=== PATIENT | female | born 1990 | race Hispanic/Latino ===

== ENCOUNTER 2019-07-03 15:28 | Outpatient (CLI) | payer MEDICAID ==
[2019-07-03 15:44] VITALS: BP 96/54
--- NOTE | 2019-07-03 17:26 | Ultrasound Report ---
Limited OB Ultrasound HISTORY: Potential rupture of membranes. TECHNIQUE: Grayscale and color Doppler imaging performed. COMPARISON: None FINDINGS: Transabdominal imaging was performed. There is a single intrauterine gestation which is cep halic in presentation. RUTH is 9. Heart rate is 145 bpm. IMPRESSION: Single viable intrauterine gestation with limited findings as above. Signer Name: Arian Godoy MD Signed: 07/03/2019 5:22 PM Workstation Name: [id number]
== END 2019-07-03 18:40 | disposition home or self-care (01) ==
LOC: TRG 15:28
PROVIDERS: ATTEND Obstetrics & Gynecology
DX: O47.1 False labor at or after 37 completed weeks of gestation (principal); Z3A.37 37 weeks gestation of pregnancy
CPT/HCPCS: 76815

== ENCOUNTER 2019-07-04 15:34 | Outpatient (CLI) | payer MEDICAID ==
--- NOTE | 2019-07-04 16:50 | Event Note ---
Date: 07/04/19 IUP#37 weeks, G4PL3 c/o ROM today the same as yesterday when her RUTH was found to be 9 by US. Today SSE revealed negative pool and nitrazine, cervix: /. Cat 1 FHT's, no UC noted, will allow patient to walk and recheck cervix.
== END 2019-07-04 19:01 | disposition home or self-care (01) ==
LOC: TRG 15:34
PROVIDERS: ATTEND Obstetrics & Gynecology
DX: O47.1 False labor at or after 37 completed weeks of gestation (principal); Z3A.37 37 weeks gestation of pregnancy
CPT/HCPCS: 59025; Q0177

== ENCOUNTER 2019-07-06 14:24 | Inpatient (IN) | payer MEDICAID ==
[2019-07-06] MEDS ORDERED: MINERAL OIL 30 ML ORAL LIQD PO PRN (17:10)
[2019-07-06] MEDS ORDERED: ONDANSETRON 4 MG/2 ML INJ IV PRN (17:10)
[2019-07-06] MEDS ORDERED: fentaNYL 100 MCG/2 ML INJ IV PRN (17:10)
[2019-07-06] MEDS ORDERED: ePHEDrine SULFATE 50 MG/1 ML INJ IV PRN ×2 (17:10→21:12)
[2019-07-06] MEDS ORDERED: TERBUTALINE 1 MG/1 ML INJ SUB-Q PRN (17:10)
[2019-07-06] MEDS ORDERED: LIDOCAINE (2%) 20 MG/1 ML VIAL 20 ML MDV INFILTRATI ONE (17:10)
--- NOTE | 2019-07-06 17:17 | History and Physical Report ---
History of Present Illness Date of examination: 07/06/19 Chief complaint: Labor @ 38+0 weeks History of present illness: EDC Calculations LMP: 07/20/2019 Past History : 4 Term Births: 1 Premature Births: 2 Living Children: 3 Para: 2 Mult. Births: 1 Prev : 0 Prev. attempt? none Aborta: 1 Elect. Ab: 0 Spont. Ab: 1 Ectopics: 0 # 1 Delivery date: 2004 Weeks Gestation: 11 Comments: exp mgmt. 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 lives with FOC and daughter. other children live with pts mother [facility] denies alcohol, drugs, tobacco Infection History Hx of STD: none HIV Risk Eval: low risk Hepatitis B Risk Eval: low risk Personal hx. of genital herpes: no Partner hx. of genital herpes: no Rash, Viral, or Febrile illness since last LMP? no Varicella/Chicken Pox Status: Immunized TB Risk: no Genetic History Congenital Heart Defect: Mom: no Dad: no Dhruv Disease: Mom: no Dad: no Thalassemia Mom: no Dad: no Neural Tube Defect Mom: no Dad: no Down's Syndrome Mom: no Dad: no Phil-Sachs Mom: no Dad: no Sickle Cell Disease/Trait Mom: no Dad: no Hemophilia Mom: no Dad: no Muscular Dystrophy Mom: no Dad: no Cystic Fibrosis Mom: no Dad: no [place] Chorea Mom: no Dad: no Mental Retardation Mom: no Dad: no Fragile X Mom: no Dad: no Other Genetic/Chromosomal Disorder Mom: no Dad: no Child w/other defect Mom: no Dad: no Enviromental Exposures Enviromental Exposures Reviewed Xray Exposure: no Medication, drug, or alcohol use since LMP: no Chemical/Other Exposure: no Exposure to Cat Liter: no Hx of Parvovirus (Fifth Disease): no Occupational Exposure to Children: none Current Allergies (reviewed today): No known allergies Past History Past Medical History: other (see HPI) Past Surgical History: other (see HPI) 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: other (see HPI) Family/Genetic History: other (see HPI) - Obstetrical History Expected Date of Delivery: 07/20/19 Actual Gestation: 38 Week(s) 0 Day(s) : 4 Para: 2 Hx # Term Pregnancies: 1 Number of Pregnancies: 2 Spontaneous Abortions: 1 Induced : 0 Number of Living Children: 3 Medications and Allergies Allergies Allergy/AdvReac Type Severity Reaction Status Date / Time No Known Allergies Allergy Unverified 07/03/19 15:30 Home Medications Medication Instructions Recorded Confirmed Last Taken Type Pnv Plus Multivit Tab 1 tab PO DAILY 07/03/19 07/03/19 07/03/19 History 0900 Active Meds: Active Medications Ephedrine Sulfate (Ephedrine Sulfate) 10 mg IV Q2M PRN PRN Reason: Hypotension Fentanyl (Sublimaze) 100 mcg IV Q2H PRN PRN Reason: Labor Pain Oxytocin/Sodium Chloride (Pitocin/Ns 20 Unit/1000ml Drip) 20 units in 1,000 mls @ 125 mls/hr IV DIRECT KRISTEN Oxytocin/Sodium Chloride (Pitocin/Ns 30 Unit/500ml) 30 units in 500 mls @ 4 mls/hr IV TITR KRISTEN; Protocol Lactated Ringer's (Lactated Ringers) 1,000 mls @ 125 mls/hr IV DIRECT KRISTEN Lidocaine (Xylocaine 2%) 20 ml INFILTRATI ONCE ONE Stop: 07/06/19 17:11 Mineral Oil (Mineral Oil) 30 ml PO QHS PRN PRN Reason: Constipation Ondansetron HCl (Zofran) 4 mg IV Q8H PRN PRN Reason: Nausea And Vomiting Terbutaline Sulfate (Brethine) 0.25 mg SUB-Q ONCE PRN PRN Reason: Hyperstimulation/Hypertonicity Review of Systems All systems: negative - Vital Signs Vital signs: Vital Signs Pulse BP 78 102/54 07/06/19 14:48 07/06/19 14:48 Temp Pulse Resp BP Pulse Ox 98.1 F 80 13 102/54 99 07/06/19 15:03 07/06/19 15:49 07/06/19 15:03 07/06/19 15:03 07/06/19 15:49 - Physical Exam Breasts: Positive: normal Cardiovascular: Regular rate Lungs: Positive: Clear to auscultation, Normal air movement Abdomen: Positive: normal appearance, soft Genitourinary (Female): Positive: normal external genitalia, normal perenium Vulva: both: normal Vagina: Positive: normal moisture (clear fluid noted during exam, uncertian if BOW is present) Uterus: Positive: normal size, normal contour Anus/Rectum: Positive: normal perianal skin Extremities: Positive: normal Deep Tendon Reflex Grade: Normal +2 - Obstetrical FHR: category 1 Cervical Dilatation: 3.5 (vertex) Cervical Effacement Percentage: 80 station: -1 Uterine Contraction Frequency (min): 2-5 Uterine Contraction Duration: 60 Uterine Contraction Pattern: Regular Uterine Tone Measurement Phase: Contraction Uterine Contraction Intensity: Moderate Results All other labs normal. Assessment and Plan 29 y/o @ 38w0d presented to triage with painful ctx and leaking fluids x 2 days. Small amount of clear fluid noted after exam, uncertain if BOW was present. cervical change noted since arrival to triage. admission orders in EMR. - Patient Problems (1) Active labor at term Current Visit: Yes Status: Acute Plan to address problem: Admission to L&D, anticipate Pitocin augmentation as needed. (2) 38 weeks gestation of Current Visit: Yes Status: Acute
[2019-07-06] MEDS ORDERED: OXYTOCIN 20 UNIT/1000ML DRIP 20 UNITS/1,000 ML BAG IV SCH (18:00)
[2019-07-06] MEDS ORDERED: OXYTOCIN DRIP 30 UNITS/500 ML BAG IV SCH (18:00)
[2019-07-06 18:06] LABS: Hematocrit 29.4 % (30.3-42.9); Hemoglobin 9.7 gm/dl (10.1-14.3); Mean Corpuscular HGB Conc 33 % (30-34); Mean Corpuscular Volume 90 fl (79-97); Platelet Count 179 K/mm3 (140-440); Red Blood Count 3.29 M/mm3 (3.65-5.03); Red Cell Distribution Width 14.9 % (13.2-15.2)
[2019-07-06] MEDS: LACTATED RINGERS 1,000 ML IV SCH ×3 (19:00→21:30)
[2019-07-06] MEDS ORDERED: SODIUM CHLORIDE P/F VIAL 10 ML 10 ML ONE (20:57)
[2019-07-06] MEDS ORDERED: DEXMEDETOMIDINE 200 MCG/2 ML VIAL IV ONE (20:57)
[2019-07-06] MEDS ORDERED: NALOXONE 2 MG/2 ML INJ IV PRN (21:12)
--- NOTE | 2019-07-06 21:14 | Anesthesia Consultation ---
Anesthesia Consult and Med Hx Date of service: 07/06/19 - Airway Anesthetic Teeth Evaluation: Caps ROM Head & Neck: Adequate Mental/Hyoid Distance: Adequate Mallampati Class: Class II Intubation Access Assessment: Probably Good - Pulmonary Exam CTA: Yes - Cardiac Exam Cardiac Exam: RRR - Pre-Operative Health Status ASA Pre-Surgery Classification: ASA3 Proposed Anesthetic Plan: Epidural - Pulmonary Hx Asthma: Yes COPD: No Hx Pneumonia: No - Cardiovascular System Hx Hypertension: No (hypotension typical sbp 90's) - Central Nervous System Hx Seizures: No Hx Psychiatric Problems: No - Endocrine Hx Renal Disease: No Hx End Stage Renal Disease: No Hx Hypothyroidism: No Hx Hyperthyroidism: No - Hematic Hx Anemia: Yes Hx Sickle Cell Disease: No - Other Systems Hx Alcohol Use: No
[2019-07-06] MEDS ORDERED: fentaNYL-BUPIV 2 MCG/ML-0.125% 200 MCG/100 ML BAG EPIDURAL SCH (22:00)
--- NOTE | 2019-07-06 22:16 | Progress Note ---
Assessment and Plan patient comfortable with epidural. SVE now /1, fluid is clear. IUPC placed without difficulty. RN to titrate pitocin as needed for adequate labor. pelvis feels adequate for size of baby. anticipate . - Patient Problems (1) Active labor at term Current Visit: Yes Status: Acute (2) 38 weeks gestation of Current Visit: Yes Status: Acute Subjective - Subjective Date of service: 07/06/19 Principal diagnosis: IUP @ 38+0, laboring Interval history: EDC Calculations LMP: 07/20/2019 Past History : 4 Term Births: 1 Premature Births: 2 Living Children: 3 Para: 2 Mult. Births: 1 Prev : 0 Prev. attempt? none Aborta: 1 Elect. Ab: 0 Spont. Ab: 1 Ectopics: 0 # 1 Delivery date: 2003 Weeks Gestation: 11 Comments: exp mgmt. 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 lives with FOC and daughter. other children live with pts mother [facility]- [facility] denies alcohol, drugs, tobacco Infection History Hx of STD: none HIV Risk Eval: low risk Hepatitis B Risk Eval: low risk Personal hx. of genital herpes: no Partner hx. of genital herpes: no Rash, Viral, or Febrile illness since last LMP? no Varicella/Chicken Pox Status: Immunized TB Risk: no Genetic History Congenital Heart Defect: Mom: no Dad: no Dhruv Disease: Mom: no Dad: no Thalassemia Mom: no Dad: no Neural Tube Defect Mom: no Dad: no Down's Syndrome Mom: no Dad: no Phil-Sachs Mom: no Dad: no Sickle Cell Disease/Trait Mom: no Dad: no Hemophilia Mom: no Dad: no Muscular Dystrophy Mom: no Dad: no Cystic Fibrosis Mom: no Dad: no [place] Chorea Mom: no Dad: no Mental Retardation Mom: no Dad: no Fragile X Mom: no Dad: no Other Genetic/Chromosomal Disorder Mom: no Dad: no Child w/other defect Mom: no Dad: no Enviromental Exposures Enviromental Exposures Reviewed Xray Exposure: no Medication, drug, or alcohol use since LMP: no Chemical/Other Exposure: no Exposure to Cat Liter: no Hx of Parvovirus (Fifth Disease): no Occupational Exposure to Children: none Current Allergies (reviewed today): No known allergies Patient reports: no new complaints (comfortable with ctx) Objective - Vital Signs Vital Signs: Vital Signs - 12hr 07/06/19 07/06/19 07/06/19 14:48 14:53 14:59 Temperature Pulse Rate 78 76 82 Respiratory Rate Blood Pressure 102/54 Blood Pressure [Left] O2 Sat by Pulse 99 100 Oximetry 07/06/19 07/06/19 07/06/19 15:03 15:04 15:09 Temperature 98.1 F Pulse Rate 78 80 78 Respiratory 13 Rate Blood Pressure Blood Pressure 102/54 [Left] O2 Sat by Pulse 98 99 99 Oximetry 07/06/19 07/06/19 07/06/19 15:14 15:19 15:24 Temperature Pulse Rate 80 75 77 Respiratory Rate Blood Pressure Blood Pressure [Left] O2 Sat by Pulse 99 99 99 Oximetry 07/06/19 07/06/19 07/06/19 15:29 15:34 15:39 Temperature Pulse Rate 79 74 81 Respiratory Rate Blood Pressure Blood Pressure [Left] O2 Sat by Pulse 98 97 98 Oximetry 07/06/19 07/06/19 07/06/19 15:44 15:49 17:38 Temperature Pulse Rate 80 80 75 Respiratory Rate Blood Pressure 98/57 Blood Pressure [Left] O2 Sat by Pulse 99 99 Oximetry 07/06/19 07/06/19 07/06/19 18:29 18:34 18:39 Temperature Pulse Rate 83 69 72 Respiratory Rate Blood Pressure Blood Pressure [Left] O2 Sat by Pulse 98 100 96 Oximetry 07/06/19 07/06/19 07/06/19 18:40 18:44 18:49 Temperature 98.0 F Pulse Rate 73 66 Respiratory Rate Blood Pressure Blood Pressure [Left] O2 Sat by Pulse 96 97 Oximetry 07/06/19 07/06/19 07/06/19 18:59 19:04 19:09 Temperature Pulse Rate 70 71 74 Respiratory Rate Blood Pressure Blood Pressure [Left] O2 Sat by Pulse 99 98 97 Oximetry 07/06/19 07/06/19 07/06/19 19:14 19:15 19:16 Temperature 98.7 F Pulse Rate 79 71 Respiratory 18 Rate Blood Pressure 97/55 Blood Pressure [Left] O2 Sat by Pulse 98 Oximetry 07/06/19 07/06/19 07/06/19 19:19 19:24 19:26 Temperature Pulse Rate 78 72 71 Respiratory Rate Blood Pressure 97/60 Blood Pressure [Left] O2 Sat by Pulse 98 98 Oximetry 07/06/19 07/06/19 07/06/19 19:29 19:34 19:39 Temperature Pulse Rate 71 81 89 Respiratory Rate Blood Pressure Blood Pressure [Left] O2 Sat by Pulse 98 100 99 Oximetry 07/06/19 07/06/19 07/06/19 19:44 19:49 19:54 Temperature Pulse Rate 83 79 76 Respiratory Rate Blood Pressure Blood Pressure [Left] O2 Sat by Pulse 100 100 100 Oximetry 07/06/19 07/06/19 07/06/19 19:59 20:04 20:09 Temperature Pulse Rate 76 69 83 Respiratory Rate Blood Pressure Blood Pressure [Left] O2 Sat by Pulse 100 100 100 Oximetry 07/06/19 07/06/19 07/06/19 20:14 20:16 20:19 Temperature Pulse Rate 69 83 86 Respiratory Rate Blood Pressure Blood Pressure [Left] O2 Sat by Pulse 100 93 98 Oximetry 07/06/19 07/06/19 07/06/19 20:23 20:24 20:29 Temperature Pulse Rate 77 76 88 Respiratory Rate Blood Pressure 98/55 Blood Pressure [Left] O2 Sat by Pulse 100 98 Oximetry 07/06/19 07/06/19 07/06/19 20:31 20:34 20:39 Temperature Pulse Rate 72 81 85 Respiratory Rate Blood Pressure 94/54 Blood Pressure [Left] O2 Sat by Pulse 99 100 Oximetry 07/06/19 07/06/19 07/06/19 20:44 20:49 20:54 Temperature Pulse Rate 81 97 H 75 Respiratory Rate Blood Pressure Blood Pressure [Left] O2 Sat by Pulse 100 99 99 Oximetry 07/06/19 07/06/19 07/06/19 20:56 20:59 21:04 Temperature Pulse Rate 93 H 89 89 Respiratory Rate Blood Pressure Blood Pressure [Left] O2 Sat by Pulse 92 99 100 Oximetry 07/06/19 07/06/19 07/06/19 21:09 21:14 21:17 Temperature Pulse Rate 87 76 71 Respiratory Rate Blood Pressure 91/53 96/52 Blood Pressure [Left] O2 Sat by Pulse 100 98 Oximetry 07/06/19 07/06/19 07/06/19 21:19 21:24 21:29 Temperature Pulse Rate 73 74 75 Respiratory Rate Blood Pressure Blood Pressure [Left] O2 Sat by Pulse 98 98 98 Oximetry 07/06/19 07/06/19 07/06/19 21:32 21:34 21:39 Temperature Pulse Rate 67 68 69 Respiratory Rate Blood Pressure 90/53 Blood Pressure [Left] O2 Sat by Pulse 98 97 Oximetry 07/06/19 07/06/19 07/06/19 21:44 21:49 21:54 Temperature Pulse Rate 74 73 68 Respiratory Rate Blood Pressure 92/52 Blood Pressure [Left] O2 Sat by Pulse 98 99 99 Oximetry 07/06/19 07/06/19 07/06/19 21:59 22:02 22:05 Temperature Pulse Rate 71 81 67 Respiratory Rate Blood Pressure 94/51 Blood Pressure [Left] O2 Sat by Pulse 98 99 Oximetry 07/06/19 22:10 Temperature Pulse Rate 64 Respiratory Rate Blood Pressure Blood Pressure [Left] O2 Sat by Pulse 98 Oximetry - Exam Breasts: normal Cardiovascular: Regular rate Lungs: Normal air movement Abdomen: Present: normal appearance, soft Vulva: both: normal Uterus: Present: normal FHR: category 1 Uterine Contraction Monitor Mode: Internal Cervical Dilatation: 6 ( head applies good pressure on cervix and decends during ctx) Cervical Effacement Percentage: 90 station: -1 Uterine Contraction Frequency (min): 2-3 Uterine Contraction Duration: 60 Uterine Contraction Pattern: Regular Uterine Tone Measurement Phase: Contraction Uterine Contraction Intensity: Moderate Extremities: normal Deep Tendon Reflex Grade: Normal +2 - Labs Labs: Abnormal Labs 07/06/19 17:45 RBC 3.29 L Hgb 9.7 L Hct 29.4 L Laboratory Results - last 24 hr 07/06/19 07/06/19 07/06/19 17:45 17:45 17:45 WBC 8.5 RBC 3.29 L Hgb 9.7 L Hct 29.4 L MCV 90 MCH 30 MCHC 33 RDW 14.9 Plt Count 179 Syphilis IgG Antibody Non-reactive Blood Type A POSITIVE Antibody Screen Negative
[2019-07-07] MEDS ORDERED: BUPIVACAINE/PF (0.25%) 2.5 MG/ML 10 ML VIAL INFILTRATI ONE (00:29)
--- NOTE | 2019-07-07 01:07 | Procedure Note ---
OB Delivery Note - Delivery Date of Delivery: 07/07/19 ( male) [employer] Developer: SAKSHI MAGANA Estimated blood loss: 300cc - Vaginal Delivery presentation: vertex Delivery position: OA Intrapartum events: none Delivery induction: none Delivery augmentation: rupture of membranes, pitocin Delivery monitor: external FHT, internal uterine Route of delivery: Delivery placenta: spontaneous Delivery cord: 3 umbilical vessels Episiotomy: none Delivery laceration: none Anesthesia: epidural Delivery comments: Male del ZION after 2 pushed, anterior shoulder del easily, placed skin to skin on mother's abd. 3 vessel cord clamped and cut after cessation of pulsation. placenta del intact and complete. Pit to IVF. EBL 300. Apgars 9/9, wt 7#6oz. mother and infant LDR stable. - A at 1 minute: 9 at 5 minutes: 9 Gender: Male (7#6oz "Nito")
[2019-07-07] MEDS ORDERED: MAGNESIUM HYDROXIDE (MOM) ORAL LIQD UDC PO PRN (05:22)
[2019-07-07] MEDS ORDERED: OXYTOCIN 20 UNIT/1000ML DRIP 20 UNITS/1,000 ML BAG IV SCH (05:22)
[2019-07-07] MEDS ORDERED: ACETAMINOPHEN 325 MG TAB PO PRN ×2 (05:22→08:30)
[2019-07-07] MEDS ORDERED: LANOLIN/ZINC/DIMETHICONE (LANSINOH) 7 GM TP PRN (05:22)
[2019-07-07] MEDS ORDERED: diphenhydrAMINE 25 MG CAP PO PRN (05:22)
[2019-07-07] MEDS ORDERED: WITCH HAZEL/ GLYCERIN PAD TP PRN (05:22)
[2019-07-07] MEDS ORDERED: PROMETHAZINE 25 MG TAB PO PRN (05:22)
[2019-07-07] MEDS: IBUPROFEN 800 MG TAB PO SCH ×4 (05:56→23:37)
--- NOTE | 2019-07-07 08:10 | Progress Note ---
<АНДРЕЙ HOLDEN - Last Filed: 07/07/19 08:11> Assessment and Plan A: 29 y.o. s/p 0050, with right sided abdominal pain P: Continue with care. Encourage ambulation. Alternate scheduled Motrin and Tylenol for pain. Nurse to let provider know if right sided pain continues so that pt can be re-evaluated. Subjective - Subjective Date of service: 07/07/19 (Pt s/p with c/o right sided abdominal pain) Principal diagnosis: IUP @ 38+0, laboring Patient reports: pain poorly controlled [place]: doing well (c/o right sided abdominal pain) Objective - Vital Signs Latest vital signs: Vital Signs Temp Pulse Resp BP BP Pulse Ox 07/07/19 05:56 18 07/07/19 05:50 98.2 F 72 18 100/48 07/07/19 04:16 76 94/50 07/07/19 03:16 65 93/51 07/07/19 02:18 64 94/57 07/07/19 02:04 71 L 07/07/19 02:00 68 97 07/07/19 01:55 67 98 07/07/19 01:50 69 97 07/07/19 01:45 66 98 07/07/19 01:40 68 98 07/07/19 01:35 68 98 07/07/19 01:30 69 98 07/07/19 01:29 68 100/58 07/07/19 01:25 69 97 07/07/19 01:20 70 97 07/07/19 01:16 74 101/59 07/07/19 01:15 76 97 07/07/19 01:10 70 97 07/07/19 01:07 68 103/59 07/07/19 01:05 78 99 07/07/19 01:00 75 98 07/07/19 00:55 71 98 07/07/19 00:50 82 100 07/07/19 00:45 74 99 07/07/19 00:40 58 L 99 07/07/19 00:37 69 101/67 07/07/19 00:35 74 98 07/07/19 00:30 72 97 07/07/19 00:25 77 97 07/07/19 00:20 75 96 07/07/19 00:17 73 89/53 07/07/19 00:15 72 96 07/07/19 00:10 78 97 07/07/19 00:05 84 96 07/07/19 00:04 88 93 07/07/19 00:00 80 97 07/06/19 23:55 73 98 07/06/19 23:50 70 98 07/06/19 23:45 74 98 07/06/19 23:40 79 99 07/06/19 23:35 77 98 07/06/19 23:30 69 98 07/06/19 23:25 71 98 07/06/19 23:20 73 97 07/06/19 23:18 65 85/52 07/06/19 23:15 69 96 07/06/19 23:10 73 97 07/06/19 23:05 70 98 07/06/19 23:00 77 98 07/06/19 22:55 74 98 07/06/19 22:50 69 97 07/06/19 22:45 69 97 07/06/19 22:40 70 97 07/06/19 22:35 71 97 07/06/19 22:30 70 97 07/06/19 22:25 81 97 07/06/19 22:20 71 99 07/06/19 22:15 70 99 07/06/19 22:10 64 98 07/06/19 22:05 67 99 07/06/19 22:02 81 94/51 07/06/19 21:59 71 98 07/06/19 21:54 68 99 07/06/19 21:49 73 92/52 99 07/06/19 21:44 74 98 07/06/19 21:39 69 97 07/06/19 21:34 68 98 07/06/19 21:32 67 90/53 07/06/19 21:29 75 98 07/06/19 21:24 74 98 07/06/19 21:19 73 98 07/06/19 21:17 71 96/52 07/06/19 21:14 76 91/53 98 07/06/19 21:09 87 100 07/06/19 21:04 89 100 07/06/19 20:59 89 99 07/06/19 20:56 93 H 92 07/06/19 20:54 75 99 07/06/19 20:49 97 H 99 07/06/19 20:44 81 100 07/06/19 20:39 85 100 07/06/19 20:34 81 99 07/06/19 20:31 72 94/54 07/06/19 20:29 88 98 07/06/19 20:24 76 100 07/06/19 20:23 77 98/55 07/06/19 20:19 86 98 07/06/19 20:16 83 93 07/06/19 20:14 69 100 07/06/19 20:09 83 100 07/06/19 20:04 69 100 07/06/19 19:59 76 100 07/06/19 19:54 76 100 07/06/19 19:49 79 100 07/06/19 19:44 83 100 07/06/19 19:39 89 99 07/06/19 19:34 81 100 07/06/19 19:29 71 98 07/06/19 19:26 71 97/60 07/06/19 19:24 72 98 07/06/19 19:19 78 98 07/06/19 19:16 71 97/55 07/06/19 19:15 98.7 F 18 07/06/19 19:14 79 98 07/06/19 19:09 74 97 07/06/19 19:04 71 98 07/06/19 18:59 70 99 07/06/19 18:49 66 97 07/06/19 18:44 73 96 07/06/19 18:40 98.0 F 07/06/19 18:39 72 96 07/06/19 18:34 69 100 07/06/19 18:29 83 98 07/06/19 17:38 75 98/57 07/06/19 15:49 80 99 07/06/19 15:44 80 99 07/06/19 15:39 81 98 07/06/19 15:34 74 97 07/06/19 15:29 79 98 07/06/19 15:24 77 99 07/06/19 15:19 75 99 07/06/19 15:14 80 99 07/06/19 15:09 78 99 07/06/19 15:04 80 99 07/06/19 15:03 98.1 F 78 13 102/54 98 07/06/19 14:59 82 100 07/06/19 14:53 76 99 07/06/19 14:48 78 102/54 Intake and Output 07/06/19 07/07/19 07/07/19 22:59 06:59 14:59 Intake Total 1141.767 Output Total 750 Balance 1141.767 -750 Intake: IV 1141.767 Lactated Ringers 1,000 ml 1112.50 @ 125 mls/hr IV DIRECT KRISTEN Rx#:[id number] PITOCin/NS 30 UNIT/500ML 29.267 30 units In 500 ml @ 4 mls/hr IV TITR KRISTEN Rx#: [id number] Output: Urine 750 Indwelling Catheter 750 Other: Total, Output Amount 200 # Voids Indwelling Catheter 1 Estimated Blood Loss 300 - Exam Breasts: Present: deferred Cardiovascular: Present: Regular rate Lungs: Present: Normal air movement Abdomen: Present: normal appearance, soft, tenderness (tenderness noted on right side), normal bowel sounds, other Vulva: both: normal Uterus: Present: normal, firm, fundal height at umbilicus Extremities: Present: normal Deep Tendon Reflex Grade: Normal +2 - Labs Labs: Abnormal lab results 07/06/19 Range/Units 17:45 RBC 3.29 L (3.65-5.03) M/mm3 Hgb 9.7 L (10.1-14.3) gm/dl Hct 29.4 L (30.3-42.9) % <JACK NOVAK - Last Filed: 07/07/19 13:36> Assessment and Plan States she had a "hot spot" after epidural placed and pain has persistent, constant, sharp. She very uncomfortable and little relief with NSAIDs and tylenol. Unable to touch, ? fullness right side abdomen/pelvis. +BS, +rebound, no skin changes. Possible rectus muscle hematoma, will proceed with CT scan. - Patient Problems (1) Combined abdominal and pelvic pain Current Visit: Yes Status: Acute Objective - Vital Signs Latest vital signs: Vital Signs Temp Pulse Resp BP BP Pulse Ox 07/07/19 12:38 97.8 F 82 18 87/46 98 07/07/19 08:25 97.4 F L 72 18 86/45 100 07/07/19 05:56 18 07/07/19 05:50 98.2 F 72 18 100/48 07/07/19 04:16 76 94/50 12/11/19 03:16 65 93/51 07/07/19 02:18 64 94/57 07/07/19 02:04 71 L 07/07/19 02:00 68 97 07/07/19 01:55 67 98 07/07/19 01:50 69 97 07/07/19 01:45 66 98 07/07/19 01:40 68 98 07/07/19 01:35 68 98 07/07/19 01:30 69 98 07/07/19 01:29 68 100/58 07/07/19 01:25 69 97 07/07/19 01:20 70 97 07/07/19 01:16 74 101/59 07/07/19 01:15 76 97 07/07/19 01:10 70 97 07/07/19 01:07 68 103/59 07/07/19 01:05 78 99 07/07/19 01:00 75 98 07/07/19 00:55 71 98 07/07/19 00:50 82 100 07/07/19 00:45 74 99 07/07/19 00:40 58 L 99 07/07/19 00:37 69 101/67 07/07/19 00:35 74 98 07/07/19 00:30 72 97 07/07/19 00:25 77 97 07/07/19 00:20 75 96 07/07/19 00:17 73 89/53 07/07/19 00:15 72 96 07/07/19 00:10 78 97 07/07/19 00:05 84 96 07/07/19 00:04 88 93 07/07/19 00:00 80 97 07/06/19 23:55 73 98 07/06/19 23:50 70 98 07/06/19 23:45 74 98 07/06/19 23:40 79 99 07/06/19 23:35 77 98 07/06/19 23:30 69 98 07/06/19 23:25 71 98 07/06/19 23:20 73 97 07/06/19 23:18 65 85/52 07/06/19 23:15 69 96 07/06/19 23:10 73 97 07/06/19 23:05 70 98 07/06/19 23:00 77 98 12/10/19 22:55 74 98 07/06/19 22:50 69 97 07/06/19 22:45 69 97 07/06/19 22:40 70 97 07/06/19 22:35 71 97 07/06/19 22:30 70 97 07/06/19 22:25 81 97 07/06/19 22:20 71 99 07/06/19 22:15 70 99 07/06/19 22:10 64 98 07/06/19 22:05 67 99 07/06/19 22:02 81 94/51 07/06/19 21:59 71 98 07/06/19 21:54 68 99 07/06/19 21:49 73 92/52 99 07/06/19 21:44 74 98 07/06/19 21:39 69 97 07/06/19 21:34 68 98 07/06/19 21:32 67 90/53 07/06/19 21:29 75 98 07/06/19 21:24 74 98 07/06/19 21:19 73 98 07/06/19 21:17 71 96/52 07/06/19 21:14 76 91/53 98 07/06/19 21:09 87 100 07/06/19 21:04 89 100 07/06/19 20:59 89 99 07/06/19 20:56 93 H 92 07/06/19 20:54 75 99 07/06/19 20:49 97 H 99 07/06/19 20:44 81 100 07/06/19 20:39 85 100 07/06/19 20:34 81 99 07/06/19 20:31 72 94/54 07/06/19 20:29 88 98 07/06/19 20:24 76 100 07/06/19 20:23 77 98/55 07/06/19 20:19 86 98 07/06/19 20:16 83 93 07/06/19 20:14 69 100 07/06/19 20:09 83 100 07/06/19 20:04 69 100 07/06/19 19:59 76 100 07/06/19 19:54 76 100 07/06/19 19:49 79 100 07/06/19 19:44 83 100 07/06/19 19:39 89 99 07/06/19 19:34 81 100 07/06/19 19:29 71 98 07/06/19 19:26 71 97/60 07/06/19 19:24 72 98 07/06/19 19:19 78 98 07/06/19 19:16 71 97/55 07/06/19 19:15 98.7 F 18 07/06/19 19:14 79 98 07/06/19 19:09 74 97 07/06/19 19:04 71 98 07/06/19 18:59 70 99 07/06/19 18:49 66 97 07/06/19 18:44 73 96 07/06/19 18:40 98.0 F 07/06/19 18:39 72 96 07/06/19 18:34 69 100 07/06/19 18:29 83 98 07/06/19 17:38 75 98/57 07/06/19 15:49 80 99 07/06/19 15:44 80 99 07/06/19 15:39 81 98 07/06/19 15:34 74 97 07/06/19 15:29 79 98 07/06/19 15:24 77 99 07/06/19 15:19 75 99 07/06/19 15:14 80 99 07/06/19 15:09 78 99 07/06/19 15:04 80 99 07/06/19 15:03 98.1 F 78 13 102/54 98 07/06/19 14:59 82 100 07/06/19 14:53 76 99 07/06/19 14:48 78 102/54 Intake and Output 07/06/19 07/07/19 07/07/19 22:59 06:59 14:59 Intake Total 1141.767 Output Total 750 Balance 1141.767 -750 Intake: IV 1141.767 Lactated Ringers 1,000 ml 1112.50 @ 125 mls/hr IV DIRECT KRISTEN Rx#:[id number] PITOCin/NS 30 UNIT/500ML 29.267 30 units In 500 ml @ 4 mls/hr IV TITR KRISTEN Rx#: [id number] Output: Urine 750 Indwelling Catheter 750 Other: Total, Output Amount 200 # Voids Indwelling Catheter 1 Estimated Blood Loss 300 - Labs Labs: Abnormal lab results 07/06/19 Range/Units 17:45 RBC 3.29 L (3.65-5.03) M/mm3 Hgb 9.7 L (10.1-14.3) gm/dl Hct 29.4 L (30.3-42.9) %
[2019-07-07] MEDS: ACETAMINOPHEN 325 MG TAB PO SCH ×3 (09:30→20:19)
[2019-07-07] MEDS: PRENATAL VIT27-FE FUMARATE-FOLIC ACID VIT TAB PO SCH (09:30)
[2019-07-07] MEDS: FERROUS SULFATE 325 MG TAB PO SCH ×2 (09:30→21:44)
[2019-07-07] MEDS ORDERED: FLU VACC QUAD 2019-20 (3 YR UP)/PF 60 MCG/0.5 ML SYRINGE IM ONE (12:00)
[2019-07-07 13:48] LABS: Hematocrit 25.9 % (30.3-42.9); Hemoglobin 8.8 gm/dl (10.1-14.3)
[2019-07-07 14:06] LABS: Blood Urea Nitrogen 6 mg/dL (7-17)
--- NOTE | 2019-07-07 18:20 | Cat Scan Report ---
CT of the abdomen and pelvis with contrast INDICATION: pain COMPARISON: None FINDINGS: Lung bases are clear. No effusions are seen. The liver, spleen, pancreas, adrenal glands an d kidneys show no abnormalities. Gallbladder is contracted. No biliary tree dilation. No fluid or thi nopathy in the upper abdomen. CT of the pelvis shows a hypervascular, enlarged uterus with a small amount of endometrial air and fluid from the recent delivery. There is no definite endometritis seen. No free pelvic fluid or bowel obstruction. No evidence of appendicitis with the appendix is normal in appearance. No uret eral stones are seen. No stone fragments seen in the bladder. IMPRESSION: uterus. Otherwise negative study. Automated exposure control was utilized to diminish radiation dose. Signer Name: Chilango Alas MD Signed: 07/07/2019 6:16 PM Workstation Name: [id number]
--- NOTE | 2019-07-07 20:11 | Event Note ---
Date: 07/07/19 Sitting on bed with baby in her arms and in the bed as well, she states still with pain but a little better with abdominal binder. CT report reviewed and discussed with patient, will continue binder and observation
[2019-07-08] MEDS: IBUPROFEN 800 MG TAB PO SCH ×2 (05:07→11:47)
[2019-07-08] MEDS ORDERED: TETANUS,DIPH,PERTUSS(ACELL) VACCINE 0.5 ML SYRINGE IM ONE (06:00)
--- NOTE | 2019-07-08 08:36 | Discharge Summary ---
Providers - Providers Date of Admission: 07/06/19 14:25 Date of discharge: 07/08/19 (Pt to be discharged home today) Attending physician: JANE AMIN Primary care physician: JANE AMIN Hospitalization Delivery: Episiotomy: none Laceration: none Other procedures: none complications: none Discharge diagnosis: IUP at term delivered [place] baby: male Hospital course: S: Pt states that the pain level on her right abdomen is still the same. States she was told that the CT scan was "clear". States ambulating okay, voiding, and passing gas. O: VSS. CT scan reviewed and was negative. H/H 8.8/25.9. FF below 1, minimal rubra. Active bowel sounds. A: 29 y.o. s/p with right sided lower abdominal pain after delivery. CT scan negative. P: D/C home with instructions. Continue to take vitamins at home. Follow up in office in 1 week for circumcision. Bring EMLA cream to appointment and don't use at home. Follow up for a visit in 4 weeks. Ambulate at home, alternate Motrin with Tylenol ( no more than 4000g in 24 hours), and use heat for lower abdominal pain. Condition at discharge: Good Disposition: DC-01 TO HOME OR SELFCARE Plan - Discharge Medications Prescriptions: Lidocain2.5%/Prilocai2.5% [Emla] 5 gm TP PRN #1 tube Ibuprofen [Motrin 800 MG tab] 800 mg PO TID PRN #30 tablet PRN Reason: Pain - Provider Discharge Summary Activity: routine, no heavy lifting 4 weeks, no strenuous exercise Diet: routine Instructions: routine Additional instructions: [] Smoking cessation referral if applicable(refer to patient education folder for contact #) [] Refer to [facility] Booklet Call your doctor immediately for: * Fever > 100.5 * Heavy vaginal bleeding ( >1 pad per hour) * Severe persistent headache * Shortness of breath * Reddened, hot, painful area to leg or breast * Drainage or odor from incision. * Keep incision clean and dry at all times and follow doctor's instructions regarding bathing/showering - Follow up plan Follow up: JANE AMIN MD [Primary Care Provider] - 7 Days (Congratulations!!! Please schedule your infants circumcision in 1 week at the office. Bring EMLA cream to the office with you for the circumcision. Do Not Use At Home! Please schedule a follow up appointment in 4 weeks for a visit with the office. Alternate Motrin and Tylenol for pain. Do not use more than 4000g of Tylenol in a 24 hour period. Can use a heating pad to lower right abdominal area. Only use the heating pad as instructed. Continue taking vitamins at home.)
[2019-07-08] MEDS: FERROUS SULFATE 325 MG TAB PO SCH (11:48)
[2019-07-08] MEDS: PRENATAL VIT27-FE FUMARATE-FOLIC ACID VIT TAB PO SCH (11:48)
[2019-07-08 17:36] VITALS: BP 94/58
== END 2019-07-08 15:30 | disposition home or self-care (01) | DRG 775 ==
LOC: TRG 14:24 → LD 14:25 → TRG 14:25 → OB 07-07 05:24
PROVIDERS: ADMIT Obstetrics & Gynecology; ATTEND Obstetrics & Gynecology
PROC: 10E0XZZ Delivery of Products of Conception, External Approach (ICD-10-PCS; principal; 2019-07-07)
PROC: 10H07YZ Insertion of Other Device into Products of Conception, Via Natural or Artificial Opening (ICD-10-PCS; 2019-07-07)
PROC: 3E0R3BZ Introduction of Anesthetic Agent into Spinal Canal, Percutaneous Approach (ICD-10-PCS; 2019-07-07)
PROC: 00HU33Z Insertion of Infusion Device into Spinal Canal, Percutaneous Approach (ICD-10-PCS; 2019-07-07)
PROC: 3E0234Z Introduction of Serum, Toxoid and Vaccine into Muscle, Percutaneous Approach (ICD-10-PCS; 2019-07-08)
DX: O99.52 Diseases of the respiratory system complicating childbirth (principal); O99.02 Anemia complicating childbirth; D64.9 Anemia, unspecified; J45.909 Unspecified asthma, uncomplicated; Z3A.38 38 weeks gestation of pregnancy; Z37.0 Single live birth
CPT/HCPCS: 36415; 59025; 74177; 76815; 82565; 84520; 85014; 85018; 85027; 86592; 86850; 86900; 86901; 90686; G0378; J2405; J2590; J3010; J3490; J7120; Q0177; Q9967